=== PATIENT | female | born 1975 | race Caucasian/White ===

== ENCOUNTER 2016-09-27 18:01 | Outpatient (CLI) | payer OTHER ==
--- NOTE | 2016-09-27 18:27 | DIAGNOSTIC IMAGING REPORT ---
PROCEDURE: XR WRIST MIN 3 VIEWS - RIGHT INDICATION: JOINT PAIN TECHNIQUE: Five views of the right wrist. COMPARISON: Right wrist films 01/14/2015 FINDINGS: Normal mineralization. No fractures. Normal osseous alignment. No suspicious soft-tissue calcification or radiodense foreign bodies. IMPRESSION: 1. Intact right wrist.
== END 2016-09-27 23:00 ==
LOC: XR SRH 18:01
DX: M25.531 Pain in right wrist (principal)

== ENCOUNTER 2016-11-29 08:35 | Emergency (ER) | payer OTHER ==
--- NOTE | 2016-11-29 10:39 | DIAGNOSTIC IMAGING REPORT ---
PROCEDURE: XR CERVICAL SPINE 2 OR 3 VIEW INDICATION: NECK TRAUMA/INJURY TECHNIQUE: Three views. COMPARISON: None. FINDINGS: Mild spondylosis C5-6 No evidence of an acute process or fracture. IMPRESSION: 1. Negative cervical spine.
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
--- NOTE | 2016-11-29 11:25 | ED ORDER SUMMARY ---
..... Patient: WASHINGTON LAMB OrderSheet [facility] VisitID: [id number] [address] [place] [address] 41y, F Registration Date/Time: 11/29/2016 ORDER SHEET Weight: 87.5 kg (stated) Allergies: Augmentin, Erythromycin, Hydrocodone, Penicillins, Sulfa Antibiotics GENERAL ORDERS: Cervical Spine 2 or 3V Urgent (09:11/29/2016 Manolo Donald) (Ack 9:34 JBoardley R.N.) (9:43 JBoardley R.N.) MEDICATION ORDERS: Toradol IM 60 mg (NOW) (09:11/29/2016 Manolo Donald) (Ack 9:25 JBoardley R.N.) (9:47 JBoardley R.N.) Diazepam IM 5 mg (HIGH ALERT MEDICATION, NOW) (10:24 11/29/2016 Manolo Donald) (Ack 10:28 JBoardley R.N.) (10:31 JBoardley R.N.) IV FLUIDS: ORDER SHEET NOTES: [Electronically signed by Mg Wheatley Dr. (11:34 11/29/2016)] [Electronically signed by Farhat Daniels R.N. (11:36 11/29/2016)] [Electronically locked/signed by Farhat Daniels R.N. (11:36 11/29/2016)]
--- NOTE | 2016-11-29 11:25 | ED ORDER SUMMARY ---
..... Patient: WASHINGTON LAMB OrderSheet [facility] VisitID: [id number] [address] [place] [address] 41y, F Registration Date/Time: 11/29/2016 ORDER SHEET Weight: 87.5 kg (stated) Allergies: Augmentin, Erythromycin, Hydrocodone, Penicillins, Sulfa Antibiotics GENERAL ORDERS: Cervical Spine 2 or 3V Urgent (09:11/29/2016 Manolo Donald) (Ack 9:34 JBoardley R.N.) (9:43 JBoardley R.N.) MEDICATION ORDERS: Toradol IM 60 mg (NOW) (09:11/29/2016 Manolo Donald) (Ack 9:25 JBoardley R.N.) (9:47 JBoardley R.N.) Diazepam IM 5 mg (HIGH ALERT MEDICATION, NOW) (10:24 11/29/2016 Manolo Donald) (Ack 10:28 JBoardley R.N.) (10:31 JBoardley R.N.) IV FLUIDS: ORDER SHEET NOTES: [Electronically signed by Mg Wheatley Dr. (11:34 11/29/2016)] [Electronically signed by Farhat Daniels R.N. (11:36 11/29/2016)] [Electronically locked/signed by Farhat Daniels R.N. (11:36 11/29/2016)]
--- NOTE | 2016-11-29 11:36 | ED MAR SUMMARY ---
..... Medication Administration Record [facility] [address] [place] [address] Patient: WASHINGTON LAMB Visit ID: [id number] 41y, F Weight: 87.5 kg Height/Length: 70 in BMI: 27.7 ALLERGIES: Augmentin, Erythromycin, Hydrocodone, Penicillins, Sulfa Antibiotics Given 09:47 11/29/2016 Farhat Daniels R.N. Medication Administered: TORADOL [IM] (KETOROLAC TROMETHAMINE), Dose: 60 mg IM. Medication Ordered: Toradol IM 60 mg (NOW). Given 10:30 11/29/2016 Farhat Daniels R.N. Medication Administered: DIAZEPAM [IM] (DIAZEPAM), Dose: 5 mg IM. Medication Ordered: Diazepam IM 5 mg (HIGH ALERT MEDICATION, NOW).
--- NOTE | 2016-11-29 11:36 | ED MAR SUMMARY ---
..... Medication Administration Record [facility] [address] [place] [address] Patient: WASHINGTON LAMB Visit ID: [id number] 41y, F Weight: 87.5 kg Height/Length: 70 in BMI: 27.7 ALLERGIES: Augmentin, Erythromycin, Hydrocodone, Penicillins, Sulfa Antibiotics Given 09:47 11/29/2016 Farhat Daniels R.N. Medication Administered: TORADOL [IM] (KETOROLAC TROMETHAMINE), Dose: 60 mg IM. Medication Ordered: Toradol IM 60 mg (NOW). Given 10:30 11/29/2016 Farhat Daniels R.N. Medication Administered: DIAZEPAM [IM] (DIAZEPAM), Dose: 5 mg IM. Medication Ordered: Diazepam IM 5 mg (HIGH ALERT MEDICATION, NOW).
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
--- NOTE | 2016-11-29 11:36 | ED MED RECONCILIATION SUMMARY ---
Patient: WASHINGTON LAMB Medication Reconciliation Report [facility] VisitID: [id number] [address] [place] [address] 41y, F Registration Date/Time: 11/29/2016 Weight: 87.5 kg Height/Length: 70 in. BMI: 27.7 ALLERGIES: Augmentin, Erythromycin, Hydrocodone, Penicillins, Sulfa Antibiotics The patient's Home Medications are listed below: CONTINUE TAKING THE FOLLOWING MEDICATIONS: Adderall XR Oral Neurontin Oral 400 mg, at bedtime Nortriptyline HCl Oral Topamax Oral Zoloft Oral The source(s) of the original Home Medication information: patient The following Medications were given to the patient in the Emergency Department: Toradol [IM] IM 60 mg, administered: 11/29/2016 9:47:00 AM Diazepam [IM] IM 5 mg, administered: 11/29/2016 10:30:00 AM The following Medications were prescribed to the patient: Baclofen 10 mg: take 1 orally every 8 hours. Dispense thirty (30). No refills. -- Mg Wheatley Dr. Diclofenac 50 mg tablets: take 1 tablet orally every 6 hours as needed for pain or stiffness. Dispense thirty (30). No refill. -- Mg Wheatley Dr.
--- NOTE | 2016-11-29 11:36 | ED MED RECONCILIATION SUMMARY ---
Patient: WASHINGTON LAMB Medication Reconciliation Report [facility] VisitID: [id number] [address] [place] [address] 41y, F Registration Date/Time: 11/29/2016 Weight: 87.5 kg Height/Length: 70 in. BMI: 27.7 ALLERGIES: Augmentin, Erythromycin, Hydrocodone, Penicillins, Sulfa Antibiotics The patient's Home Medications are listed below: CONTINUE TAKING THE FOLLOWING MEDICATIONS: Adderall XR Oral Neurontin Oral 400 mg, at bedtime Nortriptyline HCl Oral Topamax Oral Zoloft Oral The source(s) of the original Home Medication information: patient The following Medications were given to the patient in the Emergency Department: Toradol [IM] IM 60 mg, administered: 11/29/2016 9:47:00 AM Diazepam [IM] IM 5 mg, administered: 11/29/2016 10:30:00 AM The following Medications were prescribed to the patient: Baclofen 10 mg: take 1 orally every 8 hours. Dispense thirty (30). No refills. -- Mg Wheatley Dr. Diclofenac 50 mg tablets: take 1 tablet orally every 6 hours as needed for pain or stiffness. Dispense thirty (30). No refill. -- Mg Wheatley Dr.
== END 2016-11-29 11:34 | disposition home or self-care (01) ==
LOC: ED SRH 08:35
DX: S16.1XXA Strain of muscle, fascia and tendon at neck level, initial encounter (principal); V43.53XA Car driver injured in collision with pick-up truck in traffic accident, initial encounter; Y93.89 Activity, other specified; Y92.410 Unspecified street and highway as the place of occurrence of the external cause; Y99.9 Unspecified external cause status; Z79.899 Other long term (current) drug therapy; Z88.5 Allergy status to narcotic agent; Z88.2 Allergy status to sulfonamides; Z88.0 Allergy status to penicillin; Z88.1 Allergy status to other antibiotic agents